=== PATIENT | male | born 1990 | race Caucasian/White ===

== ENCOUNTER 2018-10-16 06:15 | Emergency (ER) | payer BC, SELFPAY ==
[2018-10-16 06:18] VITALS: BP 130/79; PULSE 66; RESP 18; TEMP 36.7; O2SAT 100; BMI 36.1
--- NOTE | 2018-10-16 06:29 | DI.US.S_ITS ---
PROCEDURE: US ABDOMEN COMPLETE INDICATIONS: ruq pain TECHNIQUE: Real-time scanning was performed of the abdominal and retroperitoneal organs, with image documentation. COMPARISON: None. FINDINGS: Liver: Liver is normal in size and homogeneous in echotexture. Gallbladder: Gallbladder is distended and contains numerous stones layering dependently ranging in size from 6 mm to 11 mm. There are a few non-mobile small stones in the gallbladder neck. Wall thickness is normal at 2.4 mm. No pericholecystic fluid and negative sonographic Lyn's sign. Biliary ducts: Intrahepatic bile ducts are non-dilated. Extrahepatic bile duct caliber measures 5.9 mm. Normal is 6-7 mm or less in diameter, or 10 mm or less post-cholecystectomy. Pancreas: Visualized portions of the pancreas are sonographically normal. Spleen: Spleen is mildly enlarged measuring 15.5 cm in length. Normal echotexture.. Kidneys: Kidneys are normal in size and echotexture. Right kidney measures 12.2 cm long; left kidney measures 12.3 cm long. No hydronephrosis or nephrolithiasis. No solid masses. Aorta: Visualized aorta is normal in caliber at less than 3 cm. Iliacs: Proximal common iliac arteries are normal in caliber at less than 2.5 cm. IVC: Intrahepatic inferior vena cava is patent. Miscellaneous: No free abdominal fluid. IMPRESSION: 1. Cholelithiasis without sonographic evidence of acute cholecystitis. 2. Mild splenomegaly. Based on body habitus, this may be physiologic for the patient. Dictated by: Elizabeth Martinez M.D. on 10/16/2018 at 7:38 Approved by: Elizabeth Martinez M.D. on 10/16/2018 at 7:41
[2018-10-16] MEDS: KETOROLAC 60 MG/2 ML VIAL 30 MG IV (06:42)
[2018-10-16] MEDS: ONDANSETRON 4 MG/2 ML INJ IV (06:42)
[2018-10-16 06:50] LABS: Add Manual Diff / Slide Review NO; Basophils Absolute Auto 0 /uL (0-100); Basophils Percent Auto 0.3 % (0-2); Eosinophils Absolute Auto 0 /uL (0-450); Eosinophils Percent Auto 0.1 % (2-4); Hematocrit 43.6 % (41-53); Lymphocytes Absolute Auto 1200 /uL (1100-4500); Lymphocytes Percent Auto 10.5 % (25-40); Mean Corpuscular HGB Conc 34.5 % (30-36); Mean Corpuscular Hemoglobin 30.2 PG (26-34); Mean Corpuscular Volume 87.6 fL (80-100); Monocytes Absolute Auto 500 /uL (0-900); Monocytes Percent Auto 4.9 % (3-14); Neutrophils Absolute Auto 9400 /uL (1500-7000); Neutrophils Percent Auto 84.2 % (50-75); Platelet Count 323 X10^3/uL (150-400); Red Blood Cell Count 4.97 X10^6/uL (4.5-5.9); Red Cell Distribution Width 13.6 % (11.6-14.8); White Blood Cell Count 11.2 X10^3/uL (4.5-11.0)
[2018-10-16 06:55] LABS: Alanine Aminotransferase 51 IU/L (21-72); Albumin 4.6 g/dL (3.5-5.0); Albumin Globulin Ratio 1.6 (1.0-2.8); Alkaline Phosphatase 79 U/L (38-126); Aspartate Aminotransferase 28 IU/L (17-59); BUN Creatinine Ratio 15.7 (6-22); Bilirubin Total 0.4 mg/dL (0.2-1.3); Blood Urea Nitrogen 11 mg/dL (9-20); Calcium 8.9 mg/dL (8.4-10.2); Carbon Dioxide 23 mmol/L (22-32); Chloride 103 mmol/L (98-107); Estimated Glomerular Filt Rate > 60.0 mL/min (>60); Globulin 2.8 g/dL (1.7-4.1); Glucose 153 mg/dL (70-100); HEMOLYSIS < 15 (0-50); Lipase 63 U/L (23-300); Potassium 3.5 mmol/L (3.4-5.1); Sodium 138 mmol/L (137-145); Total Protein 7.4 g/dL (6.3-8.2)
--- NOTE | 2018-10-16 06:57 | ED.ABDPAIN ---
HPI - Abdominal Pain General Chief Complaint: Abdominal Pain Stated Complaint: feels really funky has back chest stomach pain Time Seen by Provider: 10/16/18 06:25 Source: patient Mode of arrival: ambulatory Limitations: no limitations History of Present Illness HPI narrative: patient is a 28-year-old male who presents with epigastric pain which started around 3:00 a.m. while he was at work. He sometimes feels nauseated no vomiting. He has had it before noticed it with greasy food. Tonight he had some pizza is a few hours later started to feel some epigastric pain along with some right upper quadrant pain. He thinks he may have gallstones. He has not had any fever. MD complaint: abdominal pain Onset (ago): hour(s) Pain Consistency: constant Location: RUQ Severity: mild Quality: cramping Migration to: no migration Relieving factors: nothing Exacerbating factors: eating Associated symptoms: denies other symptoms Related Data Previous Rx's Medication Instructions Recorded clindamycin HCl 300 mg PO QID #40 cap 10/23/16 famotidine [Pepcid] 40 mg OR QDAY #5 08/31/17 hydroxyzine pamoate [Vistaril] 25 mg PO Q4H PRN #30 cap 08/31/17 prednisone 20 mg PO QDAY #7 tab 08/31/17 Allergies Allergy/AdvReac Type Severity Reaction Status Date / Time No Known Drug Allergies Allergy Verified 10/16/18 06:56 Review of Systems Review of Systems GENERAL: Denies chills, fatigue, malaise, fever, sweats, travel HEENT: Denies sinus pain, ear pain, sore throat, difficulty swallowing, neck pain RESPIRATORY: Denies dyspnea, cough, wheezing, hemoptysis, sputum. CARDIOVASCULAR: Denies chest pain, palpitations, orthopnea, edema GASTROINTESTINAL: see HPI : Denies dysuria, frequency, incontinence, hematuria, urinary retention, flank pain. MUSCULOSKELETAL: Denies weakness, joint pain, or bony pain SKIN: No rash, no erythema, no pruritus NEUROLOGIC: Denies weakness, dizziness, headache, numbness, change in speech, confusion PSYCHIATRIC: No concerning psychosocial issues. 12 point review of systems is negative except for those stated above and HPI [facility] Medical History Patient denies medical problems (Acute) Social History Smoking Status: Never smoker Social History Smoking Status: Never smoker Exam Initial Vital Signs Initial Vital Signs: Vital Signs Temperature 98.0 F 10/16/18 06:18 Pulse Rate 66 10/16/18 06:18 Respiratory Rate 18 10/16/18 06:18 Blood Pressure 130/79 10/16/18 06:18 Pulse Oximetry 100 10/16/18 06:18 GENERAL: alert well-appearing male in no acute distress HEENT: Head atraumatic,EOMI, pupils reactive, CARDIOVASCULAR: Regular rate and rhythm without murmurs, rubs or gallops. RESPIRATORY: Breath sounds equal bilaterally, no wheezes rales or rhonchi. ABDOMEN: Soft, mild epigastric and right upper quadrant pain without guarding or read EXTREMITIES: Normal range of motion, no clubbing or edema. Neurovascularly intact NEUROLOGICAL: Alert and oriented x4.Normal gait and speech. SKIN: Warm, dry, no laceration, no petechiae, no rashes or lesions. Course Orders Ordered: Discontinued Medications Ketorolac Tromethamine (Toradol) 30 mg IV NOW ONE Stop: 10/16/18 06:30 Last Admin: 10/16/18 06:42 Dose: 30 mg Ondansetron HCl (Zofran) 4 mg IV NOW ONE Stop: 10/16/18 06:30 Last Admin: 10/16/18 06:42 Dose: 4 mg Vital Signs - 8 hr 10/16/18 06:18 Temperature 98.0 F Pulse Rate 66 Respiratory Rate 18 Blood Pressure 130/79 Pulse Oximetry 100 MDM - Abdominal Pain Lab Data Attestation: I reviewed the patient's lab results. Result diagrams: 10/16/18 06:37 10/16/18 06:37 Lab Results 10/16/18 10/16/18 Range/Units 06:37 06:37 WBC 11.2 H (4.5-11.0) X10^3/uL RBC 4.97 (4.5-5.9) X10^6/uL Hgb 15.0 (13.5-17.5) g/dL Hct 43.6 (41-53) % MCV 87.6 (80-100) fL MCH 30.2 (26-34) PG MCHC 34.5 (30-36) % RDW 13.6 (11.6-14.8) % Plt Count 323 (150-400) X10^3/uL Neut % (Auto) 84.2 H (50-75) % Lymph % (Auto) 10.5 L (25-40) % Rich % (Auto) 4.9 (3-14) % Eos % (Auto) 0.1 L (2-4) % Baso % (Auto) 0.3 (0-2) % Neut # (Auto) 9400 H (9245-8554) /uL Lymph # (Auto) 1200 (9267-6963) /uL Rich # (Auto) 500 (0-900) /uL Eos # (Auto) 0 (0-450) /uL Baso # (Auto) 0 (0-100) /uL Sodium 138 (137-145) mmol/L Potassium 3.5 (3.4-5.1) mmol/L Chloride 103 (98-107) mmol/L Carbon Dioxide 23 (22-32) mmol/L BUN 11 (9-20) mg/dL Creatinine 0.70 (0.66-1.25) mg/dL Estimated GFR > 60.0 (>60) mL/min BUN/Creatinine Ratio 15.7 (6-22) Glucose 153 H (70-100) mg/dL Calcium 8.9 (8.4-10.2) mg/dL Total Bilirubin 0.4 (0.2-1.3) mg/dL AST 28 (17-59) IU/L ALT 51 (21-72) IU/L Alkaline Phosphatase 79 (38-126) U/L Total Protein 7.4 (6.3-8.2) g/dL Albumin 4.6 (3.5-5.0) g/dL Globulin 2.8 (1.7-4.1) g/dL Albumin/Globulin Ratio 1.6 (1.0-2.8) Lipase 63 (23-300) U/L Imaging Data US - abdomen: Radiologist's impression: PROCEDURE: US ABDOMEN COMPLETE INDICATIONS: ruq pain TECHNIQUE: Real-time scanning was performed of the abdominal and retroperitoneal organs, with image documentation. COMPARISON: None. FINDINGS: Liver: Liver is normal in size and homogeneous in echotexture. Gallbladder: Gallbladder is distended and contains numerous stones layering dependently ranging in size from 6 mm to 11 mm. There are a few non-mobile small stones in the gallbladder neck. Wall thickness is normal at 2.4 mm. No pericholecystic fluid and negative sonographic Lyn's sign. Biliary ducts: Intrahepatic bile ducts are non-dilated. Extrahepatic bile duct caliber measures 5.9 mm. Normal is 6-7 mm or less in diameter, or 10 mm or less post-cholecystectomy. Pancreas: Visualized portions of the pancreas are sonographically normal. Spleen: Spleen is mildly enlarged measuring 15.5 cm in length. Normal echotexture.. Kidneys: Kidneys are normal in size and echotexture. Right kidney measures 12.2 cm long; left kidney measures 12.3 cm long. No hydronephrosis or nephrolithiasis. No solid masses. Aorta: Visualized aorta is normal in caliber at less than 3 cm. Iliacs: Proximal common iliac arteries are normal in caliber at less than 2.5 cm. IVC: Intrahepatic inferior vena cava is patent. Miscellaneous: No free abdominal fluid. IMPRESSION: 1. Cholelithiasis without sonographic evidence of acute cholecystitis. 2. Mild splenomegaly. Based on body habitus, this may be physiologic for the patient. Dictated by: Elizabeth Martinez M.D. on 10/16/2018 at 7:38 MDM Narrative Medical decision making narrative: At this time patient has no sign of acute cholecystitis. He is afebrile with normal bilirubin and liver enzymes. Discharge Plan Departure Patient Disposition: Home Clinical Impression: Cholelithiasis Qualifiers: Cholelithiasis location: gallbladder Cholecystitis presence: without cholecystitis Biliary obstruction: without biliary obstruction Qualified Code(s): K80.20 - Calculus of gallbladder without cholecystitis without obstruction Discharge Date/Time: 10/16/18 07:33 Interventions: ED Discharge Assessment Last Done: 10/16/18 07:32 Instructions: Gallstones Activity Restrictions/Additional Instructions: *You have been diagnosed with Gallstones *What to do: you will likely need you're gallbladder removed. However at this time and is not emergent. Please try to schedule this electively with surgery. Recommend following gallbladder diet of a non greasy or fatty foods *Continue to take medications as directed Motrin 800 mg every 8 hr if needed for pain *Follow up with your primary care provider in 2-3 days, you will likely need referral from her PCP is to general surgery. *Return to ER if you should have Increasing pain, fever, persistent vomiting, any new, worsening or concerning symptoms Prescriptions: No Action clindamycin HCl 300 MG capsule 300 mg PO QID Qty: 40 RF: 0 famotidine [Pepcid] 40 MG tablet 40 mg OR QDAY Qty: 5 RF: 0 prednisone 20 MG tablet 20 mg PO QDAY Qty: 7 RF: 0 hydroxyzine pamoate [Vistaril] 25 MG capsule 25 mg PO Q4H PRNQty: 30 RF: 0 Referrals: [facility] [Provider Group] [facility] [Provider Group] [facility] [Provider Group] [facility] [Provider Group]
--- NOTE | 2018-10-16 07:00 | ED_ITS ---
HPI - Abdominal Pain General Chief Complaint: Abdominal Pain Stated Complaint: feels really funky has back chest stomach pain Time Seen by Provider: 10/16/18 06:25 Source: patient Mode of arrival: ambulatory Limitations: no limitations History of Present Illness HPI narrative: patient is a 28-year-old male who presents with epigastric pain which started around 3:00 a.m. while he was at work. He sometimes feels n auseated no vomiting. He has had it before noticed it with greasy food. Tonight he had some pizza is a few hours later started to feel some epigastric pain along with some right upper quadrant pain. He thinks he may have gallstones. He has not had any fever. MD complaint: abdominal pain Onset (ago): hour(s) Pain Consistency: constant Location: RUQ Severity: mild Quality: cramping Migration to: no migration Relieving factors: nothing Exacerbating factors: eating Associated symptoms: denies other symptoms Related Data Previous Rx's Medication Instructions Recorded clindamycin HCl 300 mg PO QID #40 cap 10/23/16 famotidine [Pepcid] 40 mg OR QDAY #5 08/31/17 hydroxyzine pamoate [Vistaril] 25 mg PO Q4H PRN #30 cap 08/31/17 prednisone 20 mg PO QDAY #7 tab 08/31/17 Allergies Allergy/AdvReac Type Severity Reaction Status Date / Time No Known Drug Allergies Allergy Verified 10/16/18 06:56 Review of Systems Review of Systems GENERAL: Denies chills, fatigue, malaise, fever, sweats, travel HEENT: Denies sinus pain, ear pain, sore throat, difficulty swallowing, neck pain RESPIRATORY: Denies dyspnea, cough, wheezing, hemoptysis, sputum. CARDIOVASCULAR: Denies chest pain, palpitations, orthopnea, edema GASTROINTESTINAL: see HPI : Denies dysuria, frequency, incontinence, hematuria, urinary retention, flank pain. MUSCULOSKELETAL: Denies weakness, joint pain, or bony pain SKIN: No rash, no erythema, no pruritus NEUROLOGIC: Denies weakness, dizziness, headache, numbness, change in speech, confusion PSYCHIATRIC: No concerning psychosocial issues. 12 point review of systems is negative except for those stated above and HPI [facility] Medical History Patient denies medical problems (Acute) Social History Smoking Status: Never smoker Social History Smoking Status: Never smoker Exam Initial Vital Signs Initial Vital Signs: Vital Signs Temperature 98.0 F 10/16/18 06:18 Pulse Rate 66 10/16/18 06:18 Respiratory Rate 18 10/16/18 06:18 Blood Pressure 130/79 10/16/18 06:18 Pulse Oximetry 100 10/16/18 06:18 GENERAL: alert well-appearing male in no acute distress HEENT: Head atraumatic,EOMI, pupils reactive, CARDIOVASCULAR: Regular rate and rhythm without murmurs, rubs or gallops. RESPIRATORY: Breath sounds equal bilaterally, no wheezes rales or rhonchi. ABDOMEN: Soft, mild epigastric and right upper quadrant pain without guarding or read EXTREMITIES: Normal range of motion, no clubbing or edema. Neurovascularly intact NEUROLOGICAL: Alert and oriented x4.Normal gait and speech. SKIN: Warm, dry, no laceration, no petechiae, no rashes or lesions. Course Orders Ordered: Discontinued Medications Ketorolac Tromethamine (Toradol) 30 mg IV NOW ONE Stop: 10/16/18 06:30 Last Admin: 10/16/18 06:42 Dose: 30 mg Ondansetron HCl (Zofran) 4 mg IV NOW ONE Stop: 10/16/18 06:30 Last Admin: 10/16/18 06:42 Dose: 4 mg Vital Signs - 8 hr 10/16/18 06:18 Temperature 98.0 F Pulse Rate 66 Respiratory Rate 18 Blood Pressure 130/79 Pulse Oximetry 100 MDM - Abdominal Pain Lab Data Attestation: I reviewed the patient's lab results. Result diagrams: 10/16/18 06:37 10/16/18 06:37 Lab Results 10/16/18 10/16/18 Range/Units 06:37 06:37 WBC 11.2 H (4.5-11.0) X10^3/uL RBC 4.97 (4.5-5.9) X10^6/uL Hgb 15.0 (13.5-17.5) g/dL Hct 43.6 (41-53) % MCV 87.6 (80-100) fL MCH 30.2 (26-34) PG MCHC 34.5 (30-36) % RDW 13.6 (11.6-14.8) % Plt Count 323 (150-400) X10^3/uL Neut % (Auto) 84.2 H (50-75) % Lymph % (Auto) 10.5 L (25-40) % [place] % (Auto) 4.9 (3-14) % Eos % (Auto) 0.1 L (2-4) % Baso % (Auto) 0.3 (0-2) % Neut # (Auto) 9400 H (3659-1265) /uL Lymph # (Auto) 1200 (2211-5599) /uL [place] # (Auto) 500 (0-900) /uL Eos # (Auto) 0 (0-450) /uL Baso # (Auto) 0 (0-100) /uL Sodium 138 (137-145) mmol/L Potassium 3.5 (3.4-5.1) mmol/L Chloride 103 (98-107) mmol/L Carbon Dioxide 23 (22-32) mmol/L BUN 11 (9-20) mg/dL Creatinine 0.70 (0.66-1.25) mg/dL Estimated GFR > 60.0 (>60) mL/min BUN/Creatinine Ratio 15.7 (6-22) Glucose 153 H (70-100) mg/dL Calcium 8.9 (8.4-10.2) mg/dL Total Bilirubin 0.4 (0.2-1.3) mg/dL AST 28 (17-59) IU/L ALT 51 (21-72) IU/L Alkaline Phosphatase 79 (38-126) U/L Total Protein 7.4 (6.3-8.2) g/dL Albumin 4.6 (3.5-5.0) g/dL Globulin 2.8 (1.7-4.1) g/dL Albumin/Globulin Ratio 1.6 (1.0-2.8) Lipase 63 (23-300) U/L Imaging Data US - abdomen: Radiologist's impression: PROCEDURE: US ABDOMEN COMPLETE INDICATIONS: ruq pain TECHNIQUE: Real-time scanning was performed of the abdominal and retroperitoneal organs, with image documentation. COMPARISON: None. FINDINGS: Liver: Liver is normal in size and homogeneous in echotexture. Gallbladder: Gallbladder is distended and contains numerous stones layering dependently ranging in size from 6 mm to 11 mm. There are a few non-mobile small stones in the gallbladder neck. Wall thickness is normal at 2.4 mm. No pericholecystic fluid and negative sonographic Lyn's sign. Biliary ducts: Intrahepatic bile ducts are non-dilated. Extrahepatic bile duct caliber measures 5.9 mm. Normal is 6-7 mm or less in diameter, or 10 mm or less post-cholecystectomy. Pancreas: Visualized portions of the pancreas are sonographically normal. Spleen: Spleen is mildly enlarged measuring 15.5 cm in length. Normal echotexture.. Kidneys: Kidneys are normal in size and echotexture. Right kidney measures 12.2 cm long; left kidney measures 12.3 cm long. No hydronephrosis or nephrolithiasis. No solid masses. Aorta: Visualized aorta is normal in caliber at less than 3 cm. Iliacs: Proximal common iliac arteries are normal in caliber at less than 2.5 cm. IVC: Intrahepatic inferior vena cava is patent. Miscellaneous: No free abdominal fluid. IMPRESSION: 1. Cholelithiasis without sonographic evidence of acute cholecystitis. 2. Mild splenomegaly. Based on body habitus, this may be physiologic for the patient. Dictated by: Elizabeth Martinez M.D. on 10/16/2018 at 7:38 MDM Narrative Medical decision making narrative: At this time patient has no sign of acute cholecystitis. He is afebrile with normal bilirubin and liver enzymes. Discharge Plan Departure Patient Disposition: Home Clinical Impression: Cholelithiasis Qualifiers: Cholelithiasis location: gallbladder Cholecystitis presence: without cholecystitis Biliary obstruction: without biliary obstruction Qualified Code(s): K80.20 - Calculus of gallbladder without cholecystitis without obstruction Discharge Date/Time: 10/16/18 07:33 Interventions: ED Discharge Assessment Last Done: 10/16/18 07:32 Instructions: Gallstones Activity Restrictions/Additional Instructions: *You have been diagnosed with Gallstones *What to do: you will likely need you're gallbladder removed. However at this time and is not emergent. Please try to schedule this electively with surgery. Recommend following gallbladder diet of a non greasy or fatty foods *Continue to take medications as directed Motrin 800 mg every 8 hr if needed for pain *Follow up with your primary care provider in 2-3 days, you will likely need referral from her PCP is to general surgery. *Return to ER if you should have Increasing pain, fever, persistent vomiting, any new, worsening or concerning symptoms Prescriptions: No Action clindamycin HCl 300 MG capsule 300 mg PO QID Qty: 40 RF: 0 famotidine [Pepcid] 40 MG tablet 40 mg OR QDAY Qty: 5 RF: 0 prednisone 20 MG tablet 20 mg PO QDAY Qty: 7 RF: 0 hydroxyzine pamoate [Vistaril] 25 MG capsule 25 mg PO Q4H PRNQty: 30 RF: 0 Referrals: [facility] [Provider Group] [facility] [Provider Group] [facility] [Provider Group] [facility] [Provider Group]
[2018-10-16 07:32] VITALS: BP 117/80; PULSE 83; RESP 16; O2SAT 100
== END 2018-10-16 07:33 | disposition home or self-care (01) ==
PROVIDERS: Emergency Provider Emergency Medicine
DX: K80.20 Calculus of gallbladder without cholecystitis without obstruction (principal)
CPT/HCPCS: 36591; 76700; 80053; 83690; 85025; 96374; 96375; 99282; 99284; J1885; J2405

== ENCOUNTER → 2018-11-29 11:07 | Outpatient (CLI) | payer BC, SELFPAY ==
[2018-11-29 12:04] LABS: Add Manual Diff / Slide Review NO; Basophils Absolute Auto 0 /uL (0-100); Basophils Percent Auto 0.5 % (0-2); Eosinophils Absolute Auto 100 /uL (0-450); Lymphocytes Absolute Auto 1800 /uL (1100-4500); Lymphocytes Percent Auto 25.6 % (25-40); Mean Corpuscular HGB Conc 34.2 % (30-36); Mean Corpuscular Hemoglobin 29.8 PG (26-34); Mean Corpuscular Volume 87.2 fL (80-100); Monocytes Absolute Auto 600 /uL (0-900); Monocytes Percent Auto 8.4 % (3-14); Neutrophils Absolute Auto 4400 /uL (1500-7000); Neutrophils Percent Auto 64.5 % (50-75); Platelet Count 311 X10^3/uL (150-400); Red Blood Cell Count 5.04 X10^6/uL (4.5-5.9); Red Cell Distribution Width 13.7 % (11.6-14.8); White Blood Cell Count 6.9 X10^3/uL (4.5-11.0)
[2018-11-29 12:12] LABS: Hemoglobin A1C% w Est Avg Glu 5.2 % (4.0-6.0)
[2018-11-29 12:26] LABS: BUN Creatinine Ratio 16.3 (6-22); Blood Urea Nitrogen 13 mg/dL (9-20); Calcium 9.6 mg/dL (8.4-10.2); Carbon Dioxide 28 mmol/L (22-32); Chloride 103 mmol/L (98-107); Cholesterol 144 mg/dL (140-199); Estimated Glomerular Filt Rate > 60.0 mL/min (>60); Gamma Glutamyl Transpeptidase 25 U/L (15-73); Glucose 93 mg/dL (70-100); HDL Cholesterol 55 mg/dL (40-60); HEMOLYSIS < 15 (0-50); LDL Cholesterol Calculated 67 mg/dL (<100); Potassium 4.6 mmol/L (3.4-5.1); Sodium 140 mmol/L (137-145); Triglycerides 108 mg/dL (35-150)
[2018-11-29 12:41] LABS: C-Reactive Protein Quant < 0.5 mg/dL (<1.0)
== END ==
PROVIDERS: Visit Provider Naturopath
DX: Z00.00 Encounter for general adult medical examination without abnormal findings (principal); K80.80 Other cholelithiasis without obstruction
CPT/HCPCS: 36415; 80048; 80061; 82977; 83036; 85025; 86140

== ENCOUNTER 2019-01-17 02:20 | Emergency (ER) | payer BC, SELFPAY ==
[2019-01-17 02:28] VITALS: BP 139/86; PULSE 64; RESP 18; TEMP 36.9; O2SAT 98; BMI 35.4
--- NOTE | 2019-01-17 02:32 | ED_ITS ---
HPI - Abdominal Pain General Chief Complaint: Abdominal Pain Stated Complaint: GALSTONES Time Seen by Provider: 01/17/19 02:23 Source: patient Mode of arrival: ambulatory Limitations: no limitations History of Present Illness HPI narrative: Patient is a 28-year-old male with known gallbladder stones. Had an appointment with General surgery yesterday as an outpatient to discuss possible removal of gallbladder. According to that note risks and benefits were discussed and the patient decided to go home and think about whether not he wanted surgery. He states that this evening at about 1000 hours he started hav ing right upper quadrant abdominal pain. He states that he feels like it it has with prior gallbladder ?attacks? he did have 1 episode of vomiting at home. No change in bowel. No urinary symptoms. No prior abdominal surgeries. Has not tried anything for symptoms prior to arrival. He states that this episode not seem to be associated with any oral intake. Related Data Home Medications Medication Instructions Recorded Confirmed cholecalciferol (vitamin D3) 1,000 1,000 unit PO DAILY 01/16/19 01/16/19 unit capsule multivitamin tablet 1 tab PO DAILY 01/16/19 01/16/19 Previous Rx's Medication Instructions Recorded hydrocodone-acetaminophen [[place]] 1 tab PO Q4-6H PRN #10 tab 01/17/19 ondansetron 4 mg PO Q6-8H PRN #10 tab 01/17/19 Allergies Allergy/AdvReac Type Severity Reaction Status Date / Time No Known Drug Allergies Allergy Verified 01/16/19 15:20 Review of Systems Constitutional Denies fever(s) Cardiovascular Denies chest pain and Denies dyspnea Respiratory Denies dyspnea Gastrointestinal Gastrointestinal: Reports abdominal pain, Denies change in stool character, Reports nausea and Reports vomiting Genitourinary Denies dysuria Musculoskeletal Denies myalgias and Denies arthralgias Integumentary/Breasts Denies rash Neurologic Denies behavioral changes Psychiatric Denies behavioral changes Hematologic/Lymphatic Denies easy bleeding and Denies easy bruising [facility] Medical History Gallstones (Acute) Patient denies medical problems (Acute) Family History (Updated 01/16/19 @ 15:26 by Tessy Soriano RN) Mother Hypertension Father Hypertension Grandmother Hypertension Heart disease Diabetes mellitus Stroke Grandfather Heart disease Gallstones Cancer Social History marital status: household members: spouse and children occupational status: employed Smoking Status: Never smoker alcohol intake: never substance use type: does not use Family History (Updated 01/16/19 @ 15:26 by Tessy Soriano RN) Mother Hypertension Father Hypertension Grandmother Hypertension Heart disease Diabetes mellitus Stroke Grandfather Heart disease Gallstones Cancer Social History marital status: household members: spouse and children occupational status: employed Smoking Status: Never smoker alcohol intake: never substance use type: does not use Exam Initial Vital Signs Initial Vital Signs: Vital Signs Temperature 98.4 F 01/17/19 02:28 Pulse Rate 64 01/17/19 02:28 Respiratory Rate 18 01/17/19 02:28 Blood Pressure 139/86 01/17/19 02:28 Pulse Oximetry 98 01/17/19 02:28 Const General: cooperative, well developed, well groomed and No acute distress Orientation: alert, awake and oriented x3 HENMT Head: normal to inspection and normocephalic Resp Effort & Inspection: normal respiratory effort Auscultation: clear to auscultation bilaterally Cardio Rate: regular rate Rhythm: regular rhythm GI Inspection: non-distended Palpation: soft, No firm and tender (Right upper quadrant with positive Lyn sign) Skin Lesions: no lesions Rashes: no rashes Neuro General: alert, awake and oriented x3 Cognition: normal cognition Speech: speech normal Extrem General: normal to inspection and capillary refill normal Course Orders Ordered: ED Orders 01/17/19 02:55 Complete Blood Count AUTO DIFF Stat Comprehensive Metabolic Panel Stat Lipase Stat 01/17/19 03:23 US abdomen limited Stat Discontinued Medications Morphine Sulfate (Morphine) 4 mg IV NOW ONE Stop: 01/17/19 02:32 Last Admin: 01/17/19 03:09 Dose: 4 mg Ondansetron HCl (Zofran) 4 mg IV NOW ONE Stop: 01/17/19 02:32 Last Admin: 01/17/19 03:09 Dose: 4 mg Vital Signs - 8 hr 01/17/19 02:28 Temperature 98.4 F Pulse Rate 64 Respiratory Rate 18 Blood Pressure 139/86 Pulse Oximetry 98 MDM - Abdominal Pain Lab Data Attestation: I reviewed the patient's lab results. Result diagrams: 01/17/19 02:55 01/17/19 02:55 Lab Results 01/17/19 01/17/19 Range/Units 02:55 02:55 WBC 16.5 H (4.5-11.0) X10^3/uL RBC 5.05 (4.5-5.9) X10^6/uL Hgb 15.5 (13.5-17.5) g/dL Hct 44.0 (41-53) % MCV 87.0 (80-100) fL MCH 30.6 (26-34) PG MCHC 35.2 (30-36) % RDW 13.4 (11.6-14.8) % Plt Count 341 (150-400) X10^3/uL Neut % (Auto) 86.9 H (50-75) % Lymph % (Auto) 8.2 L (25-40) % [place] % (Auto) 4.5 (3-14) % Eos % (Auto) 0.1 L (2-4) % Baso % (Auto) 0.3 (0-2) % Neut # (Auto) 65156 H (3050-7764) /uL Lymph # (Auto) 1400 (5010-3993) /uL [place] # (Auto) 700 (0-900) /uL Eos # (Auto) 0 (0-450) /uL Baso # (Auto) 100 (0-100) /uL Sodium 138 (137-145) mmol/L Potassium 3.6 (3.4-5.1) mmol/L Chloride 103 (98-107) mmol/L Carbon Dioxide 23 (22-32) mmol/L BUN 13 (9-20) mg/dL Creatinine 0.80 (0.66-1.25) mg/dL Estimated GFR > 60.0 (>60) mL/min BUN/Creatinine Ratio 16.3 (6-22) Glucose 154 H (70-100) mg/dL Calcium 9.4 (8.4-10.2) mg/dL Total Bilirubin 0.5 (0.2-1.3) mg/dL AST 30 (17-59) IU/L ALT 45 (21-72) IU/L Alkaline Phosphatase 85 (38-126) U/L Total Protein 7.5 (6.3-8.2) g/dL Albumin 4.6 (3.5-5.0) g/dL Globulin 2.9 (1.7-4.1) g/dL Albumin/Globulin Ratio 1.6 (1.0-2.8) Lipase 99 (23-300) U/L Imaging Data US - abdomen: Radiologist's impression: Fatty hepatomegaly. Cholelithiasis. No sonographic evidence of acute cholecystitis. No gallbladder wall thickening or pericholecystic fluid. No bile duct dilation. Multiple layering gallstones MDM Narrative Medical decision making narrative: Patient with a known history of gallstones. Review of the note from the surgeon's office yesterday states that they did discuss surgical options. Patient is afebrile. Reports improvement of symptoms but not resolution of symptoms after pain medication here in the emergency department. He is no longer vomiting a. He does have a leukocytosis. The ultrasound shows no signs of cholecystitis. His LFTs and lipase are unremarkable. Had discussion with the patient regarding either talking with the surgeons about admitting him for symptomatic cholelithiasis and her surgery versus is going home with pain medication and nausea medication and calling the surgeon's office later today to schedule surgery. After this discussion the patient opted to be discharged home. Given the location of the patient's pain and the fact that he stated that this feels just like his prior gallbladder attacks will hold on CT scan for now. He was given strict return precautions patient expressed understanding and agreement with plan. Discharge Plan Departure Patient Disposition: Home Clinical Impression: Abdominal pain Qualifiers: Abdominal location: right upper quadrant Qualified Code(s): R10.11 - Right upper quadrant pain Cholelithiasis Qualifiers: Cholelithiasis location: gallbladder Cholecystitis presence: without cholecystitis Biliary obstruction: without biliary obstruction Qualified Code (s): K80.20 - Calculus of gallbladder without cholecystitis without obstruction Instructions: Gallstones (Alternative Therapy), Acute Abdominal Pain, DI for Gallstones Activity Restrictions/Additional Instructions: I recommend that when the office is open later today that you contact the surgery Department to discuss scheduling a surgery to have her gallbladder removed. Until then if her symptoms worsen or you develop any new symptoms to include fevers please return to the emergency department for further evaluation. Prescriptions: New hydrocodone-acetaminophen [[place]] 5-325 mg tablet 1 tab PO Q4-6H PRN (Reason: pain) Qty: 10 RF: 0 ondansetron 4 mg tablet,disintegrating 4 mg PO Q6-8H PRN (Reason: nausea and vomiting) Qty: 10 RF: 0 No Action multivitamin tablet 1 tab PO DAILY RF: 0 cholecalciferol (vitamin D3) 1,000 unit capsule 1,000 unit PO DAILY RF: 0
[2019-01-17 03:02] LABS: Add Manual Diff / Slide Review NO; Basophils Absolute Auto 100 /uL (0-100); Basophils Percent Auto 0.3 % (0-2); Eosinophils Absolute Auto 0 /uL (0-450); Eosinophils Percent Auto 0.1 % (2-4); Hemoglobin 15.5 g/dL (13.5-17.5); Lymphocytes Absolute Auto 1400 /uL (1100-4500); Lymphocytes Percent Auto 8.2 % (25-40); Mean Corpuscular HGB Conc 35.2 % (30-36); Mean Corpuscular Hemoglobin 30.6 PG (26-34); Monocytes Absolute Auto 700 /uL (0-900); Monocytes Percent Auto 4.5 % (3-14); Neutrophils Absolute Auto 14300 /uL (1500-7000); Neutrophils Percent Auto 86.9 % (50-75); Platelet Count 341 X10^3/uL (150-400); Red Blood Cell Count 5.05 X10^6/uL (4.5-5.9); Red Cell Distribution Width 13.4 % (11.6-14.8); White Blood Cell Count 16.5 X10^3/uL (4.5-11.0)
[2019-01-17] MEDS: MORPHINE 4 MG/ML INJ IV (03:09)
[2019-01-17] MEDS: ONDANSETRON 4 MG/2 ML INJ IV (03:09)
[2019-01-17 03:17] LABS: Alanine Aminotransferase 45 IU/L (21-72); Albumin 4.6 g/dL (3.5-5.0); Albumin Globulin Ratio 1.6 (1.0-2.8); Alkaline Phosphatase 85 U/L (38-126); Aspartate Aminotransferase 30 IU/L (17-59); BUN Creatinine Ratio 16.3 (6-22); Bilirubin Total 0.5 mg/dL (0.2-1.3); Blood Urea Nitrogen 13 mg/dL (9-20); Calcium 9.4 mg/dL (8.4-10.2); Carbon Dioxide 23 mmol/L (22-32); Chloride 103 mmol/L (98-107); Estimated Glomerular Filt Rate > 60.0 mL/min (>60); Globulin 2.9 g/dL (1.7-4.1); Glucose 154 mg/dL (70-100); HEMOLYSIS < 15 (0-50); Lipase 99 U/L (23-300); Potassium 3.6 mmol/L (3.4-5.1); Sodium 138 mmol/L (137-145); Total Protein 7.5 g/dL (6.3-8.2)
--- NOTE | 2019-01-17 03:23 | DI.US.S_ITS ---
PROCEDURE: US ABDOMEN LIMITED INDICATIONS: RUQ PAIN TECHNIQUE: Real-time focused scanning was performed of the abdomen, with image documentation. COMPARISON: [facility], US, US ABDOMEN COMPLETE, 10/16/2018, 7:00. FINDINGS: Liver is diffusely increased in echogenicity. No focal hepatic abnormalities identified. Normal hepatic size. Multiple gallstones present. No gallbladder wall thickening or pericholecystic fluid. Negative sonographic Lyn sign. No biliary dilatation. Normal pancreas. IMPRESSION: 1. Increased hepatic echogenicity noted possibly related to hepatic steatosis but other sources of hepatocellular disease cannot be excluded. Recommend clinical correlation. 2. Cholelithiasis without acute cholecystitis. Note: These findings are concordant with the preliminary interpretation. Dictated by: Mp SIDHU Interpreted: Philippe Banks MD on 01/17/2019 at 7:55 Approved by: Philippe Banks M.D. on 01/17/2019 at 12:04
[2019-01-17] MEDS: HYDROCODONE/ACET 5/325 PREPACK 1 BOTTLE MISC (05:08)
[2019-01-17] MEDS: ONDANSETRON 4 MG ODT PREPACK 1 BOTTLE MISC (05:08)
[2019-01-17 05:12] VITALS: BP 131/67; PULSE 87; RESP 16; TEMP 36.3; O2SAT 97
== END 2019-01-17 05:15 | disposition home or self-care (01) ==
PROVIDERS: Emergency Provider Emergency Medicine
DX: K80.20 Calculus of gallbladder without cholecystitis without obstruction (principal); R11.10 Vomiting, unspecified
CPT/HCPCS: 36591; 76705; 80053; 83690; 85025; 96374; 96375; 99282; 99284; J2270; J2405